=== PATIENT | female | born 1955 | race Caucasian/White ===

== ENCOUNTER 2016-09-19 23:27 | Observation (INO) | payer OTHER ==
[~2016-09-19] VITALS: Ht 172.7 cm; Wt 68.3 kg
--- NOTE | 2016-09-20 02:27 | ED CLINICAL REPORT ---
Clinical Report - Physicians/Mid Levels [facility] [address] [place] [address] 09/19/2016 23:28 Patient: JAJA MURRIETA Time Seen: 23:55 Sep 19 2016. Arrived- By ambulance. Historian- patient and EMS personnel. CPT: ER phys charges level 5 plus (#[id number]). EKG interpretation (#[id number]). HISTORY OF PRESENT ILLNESS Chief Complaint: SINGLE SYNCOPAL EPISODE. The patient has recovered. This occurred today. (pt in kitchen when sudden onset dizziness. pt sat on floor r/t worried about passing out prior to pt LOC. pt estimates she was unconscious for approx. 10 minutes). She has had dizziness.). Event was not witnessed. The patient had preceding symptoms of light-headedness and dim vision. At time of event, she was sitting. The patient felt faint, lost consciousness, was incontinent of urine and collapsed. Had a single episode. The episode lasted (10 minutes she estimates). No injuries noted. Similar symptoms previously: None. Recent medical care: Not recently seen/assessed. REVIEW OF SYSTEMS No headache, chest pain or pain, palpitations or abdominal pain. No vomiting, diarrhea, fever or sore throat or throat. No difficulty breathing, difficulty with urination or urination, skin rash or enlarged lymph nodes. No cough, cough, urinary frequency, easy bruising or symptoms of hypothyroidism. The patient has had dizziness, weakness,, skin rash, dizziness and weakness. pt in kitchen when sudden onset dizziness. pt sat on floor r/t worried about passing out prior to pt LOC. pt estimates she was unconscious for approx. 10 minutes). She has had dizziness. Had a spell of heartburn before the syncope. Says she measured her BP as 80/p right before syncope. Notes that she had taken her 50mg losartan then right after a 50 mg dose of benadryl due to an allergic reaction. The allergic reaction resolved. All systems otherwise negative, except as recorded above. PAST HISTORY ( Hypertension. Asthma. Hernia Repair. Hysterectomy. Tonsillectomy). Medications: Symbicort Inhalation. Albuterol Sulfate HFA Inhalation. Premarin Oral. Losartan Potassium Oral. Alprazolam. Allergies: Latex. SOCIAL HISTORY Heavy tobacco smoker (cigarette)- 1 pack per day. Regular alcohol use. ADDITIONAL NOTES The nursing notes have been reviewed. PHYSICAL EXAM Vital Signs: 09/20/2016 00:20 BP: 135/69. HR: 71. 09/19/2016 23:30 HR: 67. RR: 18. O2 saturation: 99%. Temp: 97.5 F. Appearance: Alert. No acute distress. Eyes: Pupils equal, round and reactive to light. No nystagmus. Extraocular movements normal. ENT: Normal ENT inspection. TM's normal. Moist mucous membranes. Pharynx normal. Neck: Normal inspection. Neck supple. CVS: Normal heart rate and rhythm. Heart sounds normal. Pulses normal. Respiratory: No respiratory distress. Breath sounds normal. Abdomen: Soft and nontender. Back: Normal inspection. Skin: Skin warm. Normal skin color. Mild, erythematous skin rash located on the face, neck, right arm, left arm, chest, back and trunk. Extremities: Extremities exhibit normal ROM. No lower extremity edema. Neuro: Alert. Oriented X 3. Mood/affect normal. Speech normal. Cranial nerves normal (as tested). No cerebellar findings. No motor deficit. No sensory deficit. Reflexes normal. LABS, X-RAYS, AND EKG EKG: No acute process. No acute ischemia. Normal sinus rhythm. Normal P waves. Normal KELSEY. Normal QRS complex. Normal axis. Normal ST and T waves. Prior EKG unavailable. The study has been interpreted contemporaneously. The study has been independently viewed by me. The EKG appears to be a good tracing. Chest X-ray: No acute disease. (COPD). Views: AP (portable). Technique: good. The X-rays were independently viewed by me and interpreted contemporaneously by me. Laboratory Tests: TSH: (ELBERT: 09/20/2016 00:00) ( MsgRcvd 09/20/2016 00:36) Final results Test Result Flag Units (Reference) THYROID STIMULATING HORMONE 4.778 H uIU/mL (0.30-3.74) Urinalysis: (ELBERT: 09/19/2016 01:48) ( MsgRcvd 09/20/2016 02:03) Final results Test Result Flag Units (Reference) URINE COLOR YELLOW URINE APPEARANCE CLEAR URINE GLUCOSE NEGATIVE (NEGATIVE) URINE BILIRUBIN NEGATIVE (NEGATIVE) URINE KETONE NEGATIVE (NEGATIVE) URINE SPECIFIC GRAVITY 1.010 (1.010-1.030) URINE PH 6.0 (5.0-8.0) URINE PROTEIN NEGATIVE (NEGATIVE) URINE UROBILINOGEN 0.2 EU/dL (0.2-1.0) URINE NITRITE NEGATIVE (NEGATIVE) URINE BLOOD TRACE-INTACT (NEGATIVE) URINE LEUKOCYTE ESTERASE NEGATIVE (NEGATIVE) URINE RBC 0-1 rbc/hpf (0-1) URINE WBC 0-1 wbc/hpf (0-1) URINE EPITHELIAL CELLS 1-3 EPI/hpf (0-5) URINE BACTERIA FEW (1+) (NONE SEEN) URINE COMMENT N CBC w Diff: (ELBERT: 09/19/2016 23:58) ( [facility] 09/20/2016 00:13) Final results Test Result Flag Units (Reference) WHITE BLOOD COUNT 15.2 H K/uL (4.5-11.5) RED BLOOD COUNT 5.16 M/uL (4.00-5.20) HEMOGLOBIN 16.1 H gm/dL (12.0-16.0) HEMATOCRIT 48.2 H % (36.0-46.0) MEAN CELL VOLUME 93 fL (80-100) MEAN CORPUSCULAR HGB 31 pg (26-34) MEAN CORPUSCULAR HGB CONC 33 g/dL (31-37) RED CELL DISTRIBUTION WIDTH 13.2 % (11.6-14.8) PLATELET COUNT 249 K/uL (150-400) LYMPH % 21.6 L % (25-40) MONO % 1.9 L % (3-14) GRANULOCYTE % 76.5 (53-90) [id number]: (ELBERT: 09/19/2016 23:58) ( [facility] 09/20/2016 00:50) Final results Test Result Flag Units (Reference) D-DIMER QUANTITATIVE 7.15 *H ug/mLFEU (0.27-0.52) CRITICAL RESULTS CALLEDCalled to CHRISTELLE 09/20/16 0049Were 2 patient identifiers used? YWas the result read back? YThe primary value of this quantitative assay relates toits negative predictive value (i.e. exclusion) of pulmonaryembolism/deep vein thrombosis/DIC.Elevated levels of d-dimer may also occur with:, age, cancer, inflammation, liver disease,post-op, infection, hematoma, coronary disease, peripheralarteriopathy, bleeding disorders and thrombolytic treatment.Results should be correlated with other clinical andradiological data.Testing Methodology: Latex Immunoassay Urine Drug Screen: (ELBERT: 09/19/2016 01:48) ( [facility] [place] 09/20/2016 02:16) Final results Test Result Flag Units (Reference) AMPHETAMINE/METHAMPHETAMINE NEGATIVE (NEGATIVE) BARBITURATE NEGATIVE (NEGATIVE) BENZODIAZEPINE NEGATIVE (NEGATIVE) CANNABINOID NEGATIVE (NEGATIVE) COCAINE NEGATIVE (NEGATIVE) ECSTASY NEGATIVE (NEGATIVE) METHADONE NEGATIVE (NEGATIVE) OPIATE NEGATIVE (NEGATIVE) The urine drug screen is a qualitative screening test fordrug overdose and abuse. All screen results should beconsidered as presumptive.Drugs screened for are as follows:BenzodiazepinesCocaineAmphetamines/MetamphetaminesTHC (Tetrahydrocannabinol)OpiatesBarbituratesEcstasyMethadonePositive results are unconfirmed. For confirmation, notifythe lab for the specimen to be sent to the reference lab.All confirmations must be performed by a differentmethodology.The ingestion of natural herbal and plant productscontaining Ephedra/Ephedra metabolites can produce in urineone or more substances capable of cross reacting withamphetamine/methamphetamine immunoassays. These testsprovide a preliminary result only. A more specificalternative chemical method must be used to obtain aconfirmed analytical result. Ethyl Alcohol: (ELBERT: 09/19/2016 23:58) ( [facility] [place]:18) Final results Test Result Flag Units (Reference) ETHYL ALCOHOL 53 H mg/dL (3-10) BNP: (ELBERT: 09/19/2016 23:58) ( [facility] [place] 00:25) Final results Test Result Flag Units (Reference) B-TYPE NATRIURETIC PEPTIDE 13.8 pg/ml (5-100) CHEM 13 PANEL: (ELBERT: 09/19/2016 23:58) ( MsgRcvd 09/20/2016 00:33) Final results Test Result Flag Units (Reference) GLUCOSE 122 H mg/dL (70-110) BUN 8 mg/dL (7-18) CREATININE 0.7 mg/dL (0.6-1.3) Estimated GFR >60 mL/min Estimated GFR- >60 mL/min Note: Persistent reduction over 3 months in eGFR<60 mL/min/1.73 m2 defines CKD. Patients with eGFR values>=60 mL/min/1.73 m2 may also have CKD if evidence ofpersistent proteinuria. Additional information may be foundat www.kidney.org. SODIUM 130 L mmol/L (136-145) POTASSIUM 3.8 mmol/L (3.5-5.1) CHLORIDE 95 L mmol/L (98-107) CARBON DIOXIDE 22 mmol/L (21-32) CALCIUM 8.2 L mg/dL (8.5-10.1) TOTAL PROTEIN 6.7 g/dL (6.4-8.2) ALBUMIN 3.4 g/dL (3.3-5.0) BILIRUBIN, TOTAL 0.4 mg/dL (0.0-1.0) ALKALINE PHOSPHATASE 53 U/L (46-116) AST (SGOT) 19 U/L (15-37) ALT (SGPT) 28 U/L (12-78) CPK 57 U/L (24-260) MAGNESIUM 1.7 L mg/dL (1.8-2.4) TROPONIN I <0.05 ng/mL (0.00-1.5) TROPONIN REFERENCE RANGE:<0.1 NEGATIVE0.1-1.5 INDETERMINANT>1.5 POSITIVE . PROGRESS AND PROCEDURES Course of Care: Adrianlock Patient is stable. Discussed case with on-call health care provider, (Fbaian). Reviewed test results. Agreed upon treatment plan and decision to admit. Health care provider will see patient in hospital. Patient/family counseled. Old medical records ordered. Disposition orders written. Disposition: Admitted to Acute Care. CLINICAL IMPRESSION Syncope of unknown cause .12 lead EKG performed. (Electronically signed by Feliciano Arnold MD 09/20/2016 8:41)
--- NOTE | 2016-09-20 02:27 | ED CLINICAL REPORT ---
Clinical Report - Physicians/Mid Levels [facility] [address] [place] [address] 09/19/2016 23:28 Patient: JAJA MURRIETA Time Seen: 23:55 Sep 19 2016. Arrived- By ambulance. Historian- patient and EMS personnel. CPT: ER phys charges level 5 plus (#[id number]). EKG interpretation (#[id number]). HISTORY OF PRESENT ILLNESS Chief Complaint: SINGLE SYNCOPAL EPISODE. The patient has recovered. This occurred today. (pt in kitchen when sudden onset dizziness. pt sat on floor r/t worried about passing out prior to pt LOC. pt estimates she was unconscious for approx. 10 minutes). She has had dizziness.). Event was not witnessed. The patient had preceding symptoms of light-headedness and dim vision. At time of event, she was sitting. The patient felt faint, lost consciousness, was incontinent of urine and collapsed. Had a single episode. The episode lasted (10 minutes she estimates). No injuries noted. Similar symptoms previously: None. Recent medical care: Not recently seen/assessed. REVIEW OF SYSTEMS No headache, chest pain or pain, palpitations or abdominal pain. No vomiting, diarrhea, fever or sore throat or throat. No difficulty breathing, difficulty with urination or urination, skin rash or enlarged lymph nodes. No cough, cough, urinary frequency, easy bruising or symptoms of hypothyroidism. The patient has had dizziness, weakness,, skin rash, dizziness and weakness. pt in kitchen when sudden onset dizziness. pt sat on floor r/t worried about passing out prior to pt LOC. pt estimates she was unconscious for approx. 10 minutes). She has had dizziness. Had a spell of heartburn before the syncope. Says she measured her BP as 80/p right before syncope. Notes that she had taken her 50mg losartan then right after a 50 mg dose of benadryl due to an allergic reaction. The allergic reaction resolved. All systems otherwise negative, except as recorded above. PAST HISTORY ( Hypertension. Asthma. Hernia Repair. Hysterectomy. Tonsillectomy). Medications: Symbicort Inhalation. Albuterol Sulfate HFA Inhalation. Premarin Oral. Losartan Potassium Oral. Alprazolam. Allergies: Latex. SOCIAL HISTORY Heavy tobacco smoker (cigarette)- 1 pack per day. Regular alcohol use. ADDITIONAL NOTES The nursing notes have been reviewed. PHYSICAL EXAM Vital Signs: 09/20/2016 00:20 BP: 135/69. HR: 71. 09/19/2016 23:30 HR: 67. RR: 18. O2 saturation: 99%. Temp: 97.5 F. Appearance: Alert. No acute distress. Eyes: Pupils equal, round and reactive to light. No nystagmus. Extraocular movements normal. ENT: Normal ENT inspection. TM's normal. Moist mucous membranes. Pharynx normal. Neck: Normal inspection. Neck supple. CVS: Normal heart rate and rhythm. Heart sounds normal. Pulses normal. Respiratory: No respiratory distress. Breath sounds normal. Abdomen: Soft and nontender. Back: Normal inspection. Skin: Skin warm. Normal skin color. Mild, erythematous skin rash located on the face, neck, right arm, left arm, chest, back and trunk. Extremities: Extremities exhibit normal ROM. No lower extremity edema. Neuro: Alert. Oriented X 3. Mood/affect normal. Speech normal. Cranial nerves normal (as tested). No cerebellar findings. No motor deficit. No sensory deficit. Reflexes normal. LABS, X-RAYS, AND EKG EKG: No acute process. No acute ischemia. Normal sinus rhythm. Normal P waves. Normal KELSEY. Normal QRS complex. Normal axis. Normal ST and T waves. Prior EKG unavailable. The study has been interpreted contemporaneously. The study has been independently viewed by me. The EKG appears to be a good tracing. Chest X-ray: No acute disease. (COPD). Views: AP (portable). Technique: good. The X-rays were independently viewed by me and interpreted contemporaneously by me. Laboratory Tests: TSH: (ELBERT: 09/20/2016 00:00) ( MsgRcvd 09/20/2016 00:36) Final results Test Result Flag Units (Reference) THYROID STIMULATING HORMONE 4.778 H uIU/mL (0.30-3.74) Urinalysis: (ELBERT: 09/19/2016 01:48) ( MsgRcvd 09/20/2016 02:03) Final results Test Result Flag Units (Reference) URINE COLOR YELLOW URINE APPEARANCE CLEAR URINE GLUCOSE NEGATIVE (NEGATIVE) URINE BILIRUBIN NEGATIVE (NEGATIVE) URINE KETONE NEGATIVE (NEGATIVE) URINE SPECIFIC GRAVITY 1.010 (1.010-1.030) URINE PH 6.0 (5.0-8.0) URINE PROTEIN NEGATIVE (NEGATIVE) URINE UROBILINOGEN 0.2 EU/dL (0.2-1.0) URINE NITRITE NEGATIVE (NEGATIVE) URINE BLOOD TRACE-INTACT (NEGATIVE) URINE LEUKOCYTE ESTERASE NEGATIVE (NEGATIVE) URINE RBC 0-1 rbc/hpf (0-1) URINE WBC 0-1 wbc/hpf (0-1) URINE EPITHELIAL CELLS 1-3 EPI/hpf (0-5) URINE BACTERIA FEW (1+) (NONE SEEN) URINE COMMENT N CBC w Diff: (ELBERT: 09/19/2016 23:58) ( [facility] 09/20/2016 00:13) Final results Test Result Flag Units (Reference) WHITE BLOOD COUNT 15.2 H K/uL (4.5-11.5) RED BLOOD COUNT 5.16 M/uL (4.00-5.20) HEMOGLOBIN 16.1 H gm/dL (12.0-16.0) HEMATOCRIT 48.2 H % (36.0-46.0) MEAN CELL VOLUME 93 fL (80-100) MEAN CORPUSCULAR HGB 31 pg (26-34) MEAN CORPUSCULAR HGB CONC 33 g/dL (31-37) RED CELL DISTRIBUTION WIDTH 13.2 % (11.6-14.8) PLATELET COUNT 249 K/uL (150-400) LYMPH % 21.6 L % (25-40) MONO % 1.9 L % (3-14) GRANULOCYTE % 76.5 (53-90) [id number]: (ELBERT: 09/19/2016 23:58) ( [facility] 09/20/2016 00:50) Final results Test Result Flag Units (Reference) D-DIMER QUANTITATIVE 7.15 *H ug/mLFEU (0.27-0.52) CRITICAL RESULTS CALLEDCalled to CHRISTELLE 09/20/16 0049Were 2 patient identifiers used? YWas the result read back? YThe primary value of this quantitative assay relates toits negative predictive value (i.e. exclusion) of pulmonaryembolism/deep vein thrombosis/DIC.Elevated levels of d-dimer may also occur with:, age, cancer, inflammation, liver disease,post-op, infection, hematoma, coronary disease, peripheralarteriopathy, bleeding disorders and thrombolytic treatment.Results should be correlated with other clinical andradiological data.Testing Methodology: Latex Immunoassay Urine Drug Screen: (ELBERT: 09/19/2016 01:48) ( [facility] [place] [facility]:16[facility] Final results Test Result Flag Units (Reference) AMPHETAMINE/METHAMPHETAMINE NEGATIVE (NEGATIVE) BARBITURATE NEGATIVE (NEGATIVE) BENZODIAZEPINE NEGATIVE (NEGATIVE) CANNABINOID NEGATIVE (NEGATIVE) COCAINE NEGATIVE (NEGATIVE) ECSTASY NEGATIVE (NEGATIVE) METHADONE NEGATIVE (NEGATIVE) OPIATE NEGATIVE (NEGATIVE) The urine drug screen is a qualitative screening test fordrug overdose and abuse. All screen results should beconsidered as presumptive.Drugs screened for are as follows:BenzodiazepinesCocaineAmphetamines/MetamphetaminesTHC (Tetrahydrocannabinol)OpiatesBarbituratesEcstasyMethadonePositive results are unconfirmed. For confirmation, notifythe lab for the specimen to be sent to the reference lab.All confirmations must be performed by a differentmethodology.The ingestion of natural herbal and plant productscontaining Ephedra/Ephedra metabolites can produce in urineone or more substances capable of cross reacting withamphetamine/methamphetamine immunoassays. These testsprovide a preliminary result only. A more specificalternative chemical method must be used to obtain aconfirmed analytical result. Ethyl Alcohol: (ELBERT: 09/19/2016 23:58) ( [facility] [place]:18) Final results Test Result Flag Units (Reference) ETHYL ALCOHOL 53 H mg/dL (3-10) BNP: (ELBERT: 09/19/2016 23:58) ( [facility] [place] 00:25) Final results Test Result Flag Units (Reference) B-TYPE NATRIURETIC PEPTIDE 13.8 pg/ml (5-100) CHEM 13 PANEL: (ELBERT: 09/19/2016 23:58) ( MsgRcvd 09/20/2016 00:33) Final results Test Result Flag Units (Reference) GLUCOSE 122 H mg/dL (70-110) BUN 8 mg/dL (7-18) CREATININE 0.7 mg/dL (0.6-1.3) Estimated GFR >60 mL/min Estimated GFR- >60 mL/min Note: Persistent reduction over 3 months in eGFR<60 mL/min/1.73 m2 defines CKD. Patients with eGFR values>=60 mL/min/1.73 m2 may also have CKD if evidence ofpersistent proteinuria. Additional information may be foundat www.kidney.org. SODIUM 130 L mmol/L (136-145) POTASSIUM 3.8 mmol/L (3.5-5.1) CHLORIDE 95 L mmol/L (98-107) CARBON DIOXIDE 22 mmol/L (21-32) CALCIUM 8.2 L mg/dL (8.5-10.1) TOTAL PROTEIN 6.7 g/dL (6.4-8.2) ALBUMIN 3.4 g/dL (3.3-5.0) BILIRUBIN, TOTAL 0.4 mg/dL (0.0-1.0) ALKALINE PHOSPHATASE 53 U/L (46-116) AST (SGOT) 19 U/L (15-37) ALT (SGPT) 28 U/L (12-78) CPK 57 U/L (24-260) MAGNESIUM 1.7 L mg/dL (1.8-2.4) TROPONIN I <0.05 ng/mL (0.00-1.5) TROPONIN REFERENCE RANGE:<0.1 NEGATIVE0.1-1.5 INDETERMINANT>1.5 POSITIVE . PROGRESS AND PROCEDURES Course of Care: Adrianlock Patient is stable. Discussed case with on-call health care provider, (Fabian). Reviewed test results. Agreed upon treatment plan and decision to admit. Health care provider will see patient in hospital. Patient/family counseled. Old medical records ordered. Disposition orders written. Disposition: Admitted to Acute Care. CLINICAL IMPRESSION Syncope of unknown cause .12 lead EKG performed. (Electronically signed by Feliciano Arnold MD 09/20/2016 8:41)
--- NOTE | 2016-09-20 02:27 | ED ORDER SUMMARY ---
..... 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 per protocol) (23:41 SBalde R.N.) CBC w Diff Urgent (23:41 09/19/2016 SBalde R.N. per protocol) (Ack 23:43 AMcQuoid ER Tech1) (Cancelled: Other23:54 Jose M BAIN) CMP Urgent (23:41 09/19/2016 SBalde R.N. per protocol) (Ack 23:43 AMcQuoid ER Tech1) (Cancelled: Other23:54 Jose M BAIN) EKG - ER Stat (23:41 09/19/2016 SBalde R.N. per protocol) (23:41 SBalde R.N.) Pulse oximeter (23:41 09/19/2016 SBalde R.N. per protocol) (23:41 SBalde R.N.) Cardiac Panel Stat (23:55 09/19/2016 Jose M BAIN) (Ack 23:58 AMcQuoid ER Tech1) (23:58 AMcQuoid ER Tech1) BNP Urgent (23:55 09/19/2016 Jose M BAIN) (Ack 23:58 AMcQuoid ER Tech1) (23:58 AMcQuoid ER Tech1) D-Dimer Urgent (23:55 09/19/2016 Jose M BAIN) (Ack 23:58 AMcQuoid ER Tech1) (23:58 AMcQuoid ER Tech1) Chest 1V Urgent (23:55 09/19/2016 Jose M BAIN) (Ack 23:58 AMcQuoid ER Tech1) (0:13 Ayan) Ethyl Alcohol Urgent (23:56 09/19/2016 SBalde R.N. per protocol) (Ack 23:58 AMcQuoid ER Tech1) (23:58 AMcQuoid ER Tech1) Urine Drug Screen Urgent (23:57 09/19/2016 SBalde R.N. per protocol) (Ack 23:58 AMcQuoid ER Tech1) (2:08 JBullard R.N.) Urinalysis Urgent (23:57 09/19/2016 SBalde R.N. per protocol) (Ack 23:58 AMcQuoid ER Tech1) (2:08 JBullard R.N.) - (orthostatic BP/P) (00:12 09/20/2016 Jose M BAIN) (0:33 AMcQuoid ER Tech1) TSH Urgent (00:12 09/20/2016 Jose M BAIN) (Ack 0:19 AMcQuoid ER Tech1) (0:57 THEODOREullard R.N.) EKG - ER Stat (00:12 09/20/2016 Jose M BAIN) (Cancelled: Duplicate Order0:22 AMcQuoid ER Tech1) - (need BP on chart.) (00:12 09/20/2016 Jose M BAIN) (0:33 AMcQuoid ER Tech1) CTA Thorax w Cont (No) (N/A) Urgent (01:09 09/20/2016 Jose M BAIN) (Ack 1:12 AMcQuoid ER Tech1) (1:43 Ayan) MEDICATION ORDERS: IV FLUIDS: IV Saline Lock (23:41 09/19/2016 Marizol R.N. per protocol) (23:44 Alessandra R.NYessy) ORDER SHEET NOTES: [Electronically signed by Umer Gonsales R.N. (03:35 09/20/2016)] [Electronically signed by Feliciano Arnold MD (08:41 09/20/2016)] [Electronically locked/signed by Umer Gonsales R.N. (03:35 09/20/2016)]
--- NOTE | 2016-09-20 02:27 | ED NURSING NOTES ---
Clinical Report - Nurses [facility] [address] [place] [address] 09/19/2016 23:28 Patient: JAJA MURRIETA TRIAGE Triage time 2331. Acuity: LEVEL 2. Chief Complaint: DIFFICULTY STANDING and "FELT STRANGE" and SYNCOPE (itchy face neck and shoulders). --23:41 Umer Gonsales R.N. 23:30 09/19/16. HR: 67. RR: 18. O2 saturation: 99%. Temp: 97.5 F. Pain level now 0/10. --23:41 Umer Gonsales R.N. 00:54 09/20/16. BP: 147/82. --00:54 Umer Gonsales R.N. Weight: 68.9 kg stated. Height/Length: 68 inches Per Patient. BMI: 23.1. --23:35 Umer Gonsales R.N. Medications Alprazolam. --23:37 Umer Gonsales R.N. Losartan Potassium Oral. --23:38 Umer Gonsales R.N. Premarin Oral. --23:38 Umer Gonsales R.N. Albuterol Sulfate HFA Inhalation. --23:38 Umer Gonsales R.N. Symbicort Inhalation. --23:39 Umer Gonsales R.N. Allergies Latex. --23:37 Umer Gonsales R.N. Medication/allergy information source: the patient. --23:41 Umer Gonsales R.N. History Arrived by EMS. Historian: patient. Primary physician (quentin browne). This started just prior to arrival. ( pt in kitchen when sudden onset dizziness. pt sat on floor r/t worried about passing out prior to pt LOC. pt estimates she was unconscious for approx. 10 minutes). She has had dizziness. 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 SOCIAL HX: Heavy tobacco smoker- 1 pack per day. Alcohol use; consumes beer daily and wine daily. FALL RISK ASSESSMENT: Fall risk assessment completed. No fall risk identified. NUTRITIONAL RISK ASSESSMENT: The nutritional risk assessment revealed no deficiencies. FUNCTIONAL ASSESSMENT: Functional assessment: no impairments noted. LEARNING NEEDS ASSESSMENT: The learning needs assessment revealed no barriers. SKIN INTEGRITY ASSESSMENT: Skin integrity risk assessment completed. No skin integrity risk identified. --23:41 Umer Gonsales R.N. PROBLEMS: Hypertension. Asthma. --23:40 Umer Gonsales R.N. ADDITIONAL SURGERIES: Hernia Repair. Hysterectomy. Tonsillectomy. --23:40 Umer Gonsales R.N. Interventions ID band on patient. --23:41 Umer Gonsales R.N. PHYSICAL ASSESSMENT To room via stretcher. Patient gowned. Baseline functional status: usually alert, oriented x4 and cooperative. Verbal response: usually clear and appropriate. Motor response: usually steady gait and moves all extremities equally GENERAL / NEURO / PSYCH: Awake. Oriented X 4. Alert. Appears in no acute distress. Speech normal. Mood/affect normal. Moves all extremities. No motor deficit. No sensory deficit. HEENT: No facial asymmetry noted. Pupils equal, round and reactive to light. EOM intact. RESPIRATORY: Breath sounds within normal limits. Respirations not labored. CVS: Capillary refill less than 2 seconds. SKIN: Skin is intact, warm and dry. --23:42 Umer Gonsales R.N. NURSING PROGRESS NOTES Patient gowned. Head of bed elevated. Reassurance given. Patient identifiers checked. Call light placed in reach. Bed placed in lowest position. Brakes of bed on. --23:43 Umer Gonsales R.N. 23:29 09/19/2016 Site #1 started prior to arrival by EMS via IV in the right antecubital space with an 20g angiocath. --23:44 Umer Gonsales R.N. EKG time: (23:43). EKG was performed by a pritesh and shown to the ED physician. --23:44 Conrad Jarquin 00:20 09/20/16. BP: 135/69 taken while lying. HR: 71. --00:32 McQuoid, Carole, ER Tech1 00:22 09/20/16. BP: 151/85 taken while sitting. HR: 76. --00:32 McQuCarole mario, ER Tech1 00:24 09/20/16. BP: 143/84 taken while standing. HR: 83. --00:33 McQuoid Carole, ER Tech1 01:27. Patient transported to [place] by stretcher with tech. --01:27 McQuoid Carole, ER Tech1 01:39. Patient returned from CT by stretcher with tech. --01:40 McQuoid, Carole, ER Tech1. DISPOSITION / DISCHARGE Admitted to the Critical Care Unit. Patient's personal items include: shirt, pants, glasses and purse. --03:24 Neisha Rubio R.N. 03:23 09/20/16. BP: 147/86. HR: 82. RR: 16. O2 saturation: 98%. Temp: 98.2 F. Pain level now 0/10. --03:24 Neisha Rubio R.N. Departure time: 03:25 Sep 20 2016. --03:25 Neisha Rubio R.N. Locked/Released at 09/20/2016 3:35 by Umer Gonsales R.N.
--- NOTE | 2016-09-20 02:27 | ED NURSING NOTES ---
Clinical Report - Nurses [facility] [address] [place] [address] 09/19/2016 23:28 Patient: JAJA MURRIETA TRIAGE Triage time 2331. Acuity: LEVEL 2. Chief Complaint: DIFFICULTY STANDING and "FELT STRANGE" and SYNCOPE (itchy face neck and shoulders). --23:41 Umer Gonsales R.N. 23:30 09/19/16. HR: 67. RR: 18. O2 saturation: 99%. Temp: 97.5 F. Pain level now 0/10. --23:41 Umer Gonsales R.N. 00:54 09/20/16. BP: 147/82. --00:54 Umer Gonsales R.N. Weight: 68.9 kg stated. Height/Length: 68 inches Per Patient. BMI: 23.1. --23:35 Umer Gonsales R.N. Medications Alprazolam. --23:37 Umer Gonsales R.N. Losartan Potassium Oral. --23:38 Umer Gonsales R.N. Premarin Oral. --23:38 Umer Gonsales R.N. Albuterol Sulfate HFA Inhalation. --23:38 Umer Gonsales R.N. Symbicort Inhalation. --23:39 Umer Gonsales R.N. Allergies Latex. --23:37 Umer Gonsales R.N. Medication/allergy information source: the patient. --23:41 Umer Gonsales R.N. History Arrived by EMS. Historian: patient. Primary physician (quentin browne). This started just prior to arrival. ( pt in kitchen when sudden onset dizziness. pt sat on floor r/t worried about passing out prior to pt LOC. pt estimates she was unconscious for approx. 10 minutes). She has had dizziness. 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 SOCIAL HX: Heavy tobacco smoker- 1 pack per day. Alcohol use; consumes beer daily and wine daily. FALL RISK ASSESSMENT: Fall risk assessment completed. No fall risk identified. NUTRITIONAL RISK ASSESSMENT: The nutritional risk assessment revealed no deficiencies. FUNCTIONAL ASSESSMENT: Functional assessment: no impairments noted. LEARNING NEEDS ASSESSMENT: The learning needs assessment revealed no barriers. SKIN INTEGRITY ASSESSMENT: Skin integrity risk assessment completed. No skin integrity risk identified. --23:41 Umer Gonsales R.N. PROBLEMS: Hypertension. Asthma. --23:40 Umer Gonsales R.N. ADDITIONAL SURGERIES: Hernia Repair. Hysterectomy. Tonsillectomy. --23:40 Umer Gonsales R.N. Interventions ID band on patient. --23:41 Umer Gonsales R.N. PHYSICAL ASSESSMENT To room via stretcher. Patient gowned. Baseline functional status: usually alert, oriented x4 and cooperative. Verbal response: usually clear and appropriate. Motor response: usually steady gait and moves all extremities equally GENERAL / NEURO / PSYCH: Awake. Oriented X 4. Alert. Appears in no acute distress. Speech normal. Mood/affect normal. Moves all extremities. No motor deficit. No sensory deficit. HEENT: No facial asymmetry noted. Pupils equal, round and reactive to light. EOM intact. RESPIRATORY: Breath sounds within normal limits. Respirations not labored. CVS: Capillary refill less than 2 seconds. SKIN: Skin is intact, warm and dry. --23:42 Umer Gonsales R.N. NURSING PROGRESS NOTES Patient gowned. Head of bed elevated. Reassurance given. Patient identifiers checked. Call light placed in reach. Bed placed in lowest position. Brakes of bed on. --23:43 Umer Gonsales R.N. 23:29 09/19/2016 Site #1 started prior to arrival by EMS via IV in the right antecubital space with an 20g angiocath. --23:44 Umer Gonsales R.N. EKG time: (23:43). EKG was performed by a pritesh and shown to the ED physician. --23:44 Conrad Jarquin 00:20 09/20/16. BP: 135/69 taken while lying. HR: 71. --00:32 McQuoid, Carole, ER Tech1 00:22 09/20/16. BP: 151/85 taken while sitting. HR: 76. --00:32 McQuCaroel mario, ER Tech1 00:24 09/20/16. BP: 143/84 taken while standing. HR: 83. --00:33 McQuoid Carole, ER Tech1 01:27. Patient transported to [place] by stretcher with tech. --01:27 McQuoid Carole, ER Tech1 01:39. Patient returned from CT by stretcher with tech. --01:40 McQuoid, Carole, ER Tech1. DISPOSITION / DISCHARGE Admitted to the Critical Care Unit. Patient's personal items include: shirt, pants, glasses and purse. --03:24 Neisha Rubio R.N. 03:23 09/20/16. BP: 147/86. HR: 82. RR: 16. O2 saturation: 98%. Temp: 98.2 F. Pain level now 0/10. --03:24 Neisha Rubio R.N. Departure time: 03:25 Sep 20 2016. --03:25 Neisha Rubio R.N. Locked/Released at 09/20/2016 3:35 by Umer Gonsales R.N.
--- NOTE | 2016-09-20 02:27 | ED ORDER SUMMARY ---
..... Patient: JAJA MURRIETA OrderSheet Merged With [facility] VisitID: [id number] [address] [place] [address] 60y, F Registration Date/Time: 09/19/2016 ORDER SHEET Weight: 68.9 kg (stated) Allergies: Latex GENERAL ORDERS: Row Boss Hoeing (Continuous) (23:40 09/19/2016 SBalde R.N. per protocol) (23:41 SBalde R.N.) CBC w Diff Urgent (23:41 09/19/2016 SBalde R.N. per protocol) (Ack 23:43 AMcQuoid ER Tech1) (Cancelled: Other23:54 Jose M BAIN) CMP Urgent (23:41 09/19/2016 SBalde R.N. per protocol) (Ack 23:43 AMcQuoid ER Tech1) (Cancelled: Other23:54 Jose M BAIN) EKG - ER Stat (23:41 09/19/2016 SBalde R.N. per protocol) (23:41 SBalde R.N.) Pulse oximeter (23:41 09/19/2016 SBalde R.N. per protocol) (23:41 SBalde R.N.) Cardiac Panel Stat (23:55 09/19/2016 Jose M BAIN) (Ack 23:58 AMcQuoid ER Tech1) (23:58 AMcQuoid ER Tech1) BNP Urgent (23:55 09/19/2016 Jose M BAIN) (Ack 23:58 AMcQuoid ER Tech1) (23:58 AMcQuoid ER Tech1) D-Dimer Urgent (23:55 09/19/2016 Jose M BAIN) (Ack 23:58 AMcQuoid ER Tech1) (23:58 AMcQuoid ER Tech1) Chest 1V Urgent (23:55 09/19/2016 Jose M BAIN) (Ack 23:58 AMcQuoid ER Tech1) (0:13 Ayan) Ethyl Alcohol Urgent (23:56 09/19/2016 SBalde R.N. per protocol) (Ack 23:58 AMcQuoid ER Tech1) (23:58 AMcQuoid ER Tech1) Urine Drug Screen Urgent (23:57 09/19/2016 SBalde R.N. per protocol) (Ack 23:58 AMcQuoid ER Tech1) (2:08 JBullard R.N.) Urinalysis Urgent (23:57 09/19/2016 SBalde R.N. per protocol) (Ack 23:58 AMcQuoid ER Tech1) (2:08 JBullard R.N.) - (orthostatic BP/P) (00:12 09/20/2016 Jose M BAIN) (0:33 AMcQuoid ER Tech1) TSH Urgent (00:12 09/20/2016 Jose M BAIN) (Ack 0:19 AMcQuoid ER Tech1) (0:57 THEODOREullard R.N.) EKG - ER Stat (00:12 09/20/2016 Jose M BAIN) (Cancelled: Duplicate Order0:22 AMcQuoid ER Tech1) - (need BP on chart.) (00:12 09/20/2016 Jose M BAIN) (0:33 AMcQuoid ER Tech1) CTA Thorax w Cont (No) (N/A) Urgent (01:09 09/20/2016 Jose M BAIN) (Ack 1:12 AMcQuoid ER Tech1) (1:43 Ayan) MEDICATION ORDERS: IV FLUIDS: IV Saline Lock (23:41 09/19/2016 Marizol R.N. per protocol) (23:44 Alessandra R.NYessy) ORDER SHEET NOTES: [Electronically signed by Umer Gonsales R.N. (03:35 09/20/2016)] [Electronically signed by Feliciano Arnold MD (08:41 09/20/2016)] [Electronically locked/signed by Umer Gonsales R.N. (03:35 09/20/2016)]
[2016-09-20 03:56] VITALS: BP 137/75
--- NOTE | 2016-09-20 04:28 | HISTORY AND PHYSICAL ---
ADMITTED: 09/20/2016 CHIEF COMPLAINT: 1. Syncope HISTORY OF PRESENT ILLNESS: A 60-year-old female who was well on the evening prior to admission. She states she had a dinner, which is normal for her, which was spaghetti with "cinnamon cap mushrooms in." Following dinner she became red and itchy. She called the nurse hotline and was advised to use Benadryl. She did not have that available, but called a neighbor who did have some Benadryl. She took 2 tablets of Benadryl. She then began to feel dizzy. She checked her blood pressure and found it to be 80/ palpable. She sat on the floor and then laid down and then "passed out for 10 minutes." She noted on waking that she was incontinent of urine and had some achiness in the left leg. She also notes she had 1 beer and 1 wine on the evening prior to this. She states this is not unusual for her, but she does not drink alcohol every night. When the patient developed a red rash, she also had hives. She notes she had also took her evening dose of 50 mg of Losartan about the same time, she took the Benadryl. MEDICAL/SURGICAL HISTORY: Positive for hypertension and asthma. The patient also has had herniated disk x2 and ruptured disk x3, in her back. Surgical history herniorrhaphy, hysterectomy, appendectomy, tonsillectomy. MEDICATIONS: 1. Symbicort 1 puff 4 times per week. 2. Albuterol 2 puffs every 4 hours p.r.n. 3. Premarin 0.625 mg every other day. 4. Losartan 50 mg p.o. b.i.d. 5. Alprazolam 0.5 mg 1/2 tablet at bedtime and another half tablet at 4 a.m. "for anxiety." She does not take alprazolam during the day. ALLERGIES: 1. LATEX. SOCIAL HISTORY: female. She has been x30 years. She has 1 son and is retired. FAMILY HISTORY: Mother of cancer of unknown type. Father of unknown cause. There is no diabetes in the family. The patient notes she has a niece with asthma and a sister with colon cancer. REVIEW OF SYSTEMS: The patient denies headache. She admits to lightheadedness and dimmed vision prior to her syncopal episode. General: Denies fevers, chills, or malaise. HEENT; Denies hearing change, vision change, sore throat or sinus pain. Respiratory: Denies cough, shortness of breath, or wheezing. Cardiac: Denies chest pain, palpitations, or paroxysmal nocturnal dyspnea. Gastrointestinal: Denies nausea, vomiting, diarrhea, constipation, bright red blood per rectum or melena. Genitourinary: Denies dysuria or hematuria, but admits to incontinence x1 as noted above with syncope. PHYSICAL EXAMINATION: VITAL SIGNS: Blood pressure 135/69, pulse 71, respirations 18, SaO2 99%, temperature 97.5. HEENT: Clear. NECK: Supple without adenopathy or thyromegaly. CHEST: Clear to auscultation and percussion. HEART: Regular rate and rhythm without murmur. ABDOMEN: Positive bowel sounds. Soft, nontender, without hepatosplenomegaly or masses. BACK: Straight without CVA tenderness. EXTREMITIES: Without cyanosis, clubbing, or edema. NEUROLOGIC: Intact and symmetric. Cranial nerves II through XII intact to confrontation. SKIN: Shows no lesions. There is some patchy redness to the skin. No hives are noted. GENITAL/RECTAL/BREASTS: Deferred. LAB/IMAGING: TSH 4.778. Urinalysis clear. WBC 15.2, hemoglobin 16.1, platelets 249. D-dimer 7.15. Urine toxicology screen negative. Ethyl alcohol 53. BNP 13.8, glucose 122, BUN 8, creatinine 0.7. Sodium 130, potassium 3.8, chloride 95, bicarbonate 22, calcium 8.2. Total protein 6.7, albumin 3.4. Total bilirubin 0.4, AST 19, ALT 28. CPK 57 , magnesium 1.7. Troponin less than 0.05. CT angiogram was performed which was negative for pulmonary emboli. Chest x-ray is obtained, which is benign without lesions or infiltrates. There is no cardiomegaly. EKG reveals normal sinus rhythm. IMPRESSION: 1. Syncope, etiology unclear, possibly secondary to allergic reaction versus secondary to alcohol versus secondary to Benadryl versus secondary to hypotension with antihypertensive medications. 2. History of hypertension. 3. History of asthma. 4. History of anxiety disorder. PLAN: Admit to [facility] for IV hydration and telemetry monitoring. We will obtain an MRI of the head.
--- NOTE | 2016-09-20 05:37 | DIAGNOSTIC IMAGING REPORT ---
PROCEDURE: XR CHEST 1 VIEW INDICATION: SYNCOPE TECHNIQUE: Portable AP view 12:07 a.m. COMPARISON: None. FINDINGS: Lungs are clear. The right basilar nipple shadow. Heart and mediastinum are normal. Thorax is normal. IMPRESSION: 1. Negative chest.
[2016-09-20] MEDS ORDERED: LOSARTAN POTASS50 MG PO (06:05)
[2016-09-20] MEDS ORDERED: PREMARIN0.625 MG PO (06:09)
[2016-09-20] MEDS ORDERED: PROBIOTI1 PO (06:10)
[2016-09-20] MEDS ORDERED: ROBITUSSIN COUGH (06:14)
[2016-09-20] MEDS ORDERED: XANAX0.5 MG ET (06:15)
[2016-09-20] MEDS ORDERED: SYMBICORT1 AER IN (06:18)
[2016-09-20] MEDS ORDERED: ALBUTEROL HFA60 DOSE IN (06:21)
--- NOTE | 2016-09-20 06:28 | DIAGNOSTIC IMAGING REPORT ---
PROCEDURE: CTA THORAX WITH CONTRAST INDICATION: SYNCOPE TECHNIQUE: 84 ml of Isovue 370 was injected intravenously and axial images were obtained of the entire thorax with 3D sagittal and coronal MIP reconstructions. COMPARISON: Chest x-ray 09/20/2016 FINDINGS: No evidence of pulmonary emboli. Mild emphysematous changes. No adenopathy or effusion. No aortic dissection or aneurysm. Dense calcific plaque of the mid descending thoracic aorta with less than 50% stenosis. Mild calcific atherosclerosis of the proximal left common carotid and right innominate artery. 1.9 cm left adrenal nodule. No suspicious osseous lesions. IMPRESSION: 1. No evidence of pulmonary emboli, aortic dissection or aneurysm 2. Atherosclerosis of the aorta and great vessels 3. Mild emphysema 4. 1.9 cm left adrenal nodule 5. Preliminary results submitted by Dr. Camp, [facility] radiology
[2016-09-20 06:44] VITALS: BP 136/80
--- NOTE | 2016-09-20 08:42 | ED MAR SUMMARY ---
..... Medication Administration Record [facility] [address], [place] [id number] Patient: JAJA MURRIETA Visit ID: [id number] 60y, F Weight: 68.9 kg Height/Length: 68 in BMI: 23.1 ALLERGIES: Latex
--- NOTE | 2016-09-20 08:42 | ED MED RECONCILIATION SUMMARY ---
Patient: JAJA MURRIETA Medication Reconciliation Report [facility] VisitID: [id number] [address] [place] [address] 60y, F Registration Date/Time: 09/19/2016 Weight: 68.9 kg Height/Length: 68 in. BMI: 23.1 ALLERGIES: Latex The patient's Home Medications are listed below: THE FOLLOWING MEDICATIONS NEED TO BE RECONCILED: Albuterol Sulfate HFA Inhalation Alprazolam Losartan Potassium Oral Premarin Oral Symbicort Inhalation The source(s) of the original Home Medication information: patient The following Medications were given to the patient in the Emergency Department: None. The following Medications were prescribed to the patient: None.
--- NOTE | 2016-09-20 08:42 | ED MED RECONCILIATION SUMMARY ---
Patient: JAJA MURRIETA Medication Reconciliation Report [facility] VisitID: [id number] [address] [place] [address] 60y, F Registration Date/Time: 09/19/2016 Weight: 68.9 kg Height/Length: 68 in. BMI: 23.1 ALLERGIES: Latex The patient's Home Medications are listed below: THE FOLLOWING MEDICATIONS NEED TO BE RECONCILED: Albuterol Sulfate HFA Inhalation Alprazolam Losartan Potassium Oral Premarin Oral Symbicort Inhalation The source(s) of the original Home Medication information: patient The following Medications were given to the patient in the Emergency Department: None. The following Medications were prescribed to the patient: None.
--- NOTE | 2016-09-20 08:42 | ED MAR SUMMARY ---
..... Medication Administration Record [facility] [address] [place], [place] [id number] Patient: JAJA MURRIETA Visit ID: [id number] 60y, F Weight: 68.9 kg Height/Length: 68 in BMI: 23.1 ALLERGIES: Latex
--- NOTE | 2016-09-20 08:42 | ED DISCHARGE INSTRUCTIONS ---
Patient: JAJA MURRIETA General Instructions [facility] VisitID: [id number] [place] [address] 60y, F Registration Date/Time: 09/19/2016 Syncope of unknown cause .12 lead EKG performed. ADDITIONAL INFORMATION Fainting:Uncertain Cause Fainting (syncope) is a temporary loss of consciousness ("passing out"). It occurs when blood flow to the brain is reduced. Near-fainting ("near-syncope") is very similar to fainting, but you do not fully "pass out". The common minor causes of fainting include: sudden fear, pain, nausea, emotional stress and overexertion. Suddenly standing up after sitting or lying for a long time can also cause fainting. The more serious causes for fainting are due to either a very slow or very fast or very slow heart beat ("arrhythmia"), other types of heart disease, dehydration, blood loss, seizure, stroke or ruptured blood vessel in the brain. Taking too much high blood pressure medicine can also cause low blood pressure and fainting. The exact cause of your episode is not certain. However, the tests today did not show any of the serious causes of fainting. Sometimes further testing is needed to find out if a serious problem exists. Therefore, it is important that you follow-up with your doctor as advised. Home Care: 1) Rest today. You may resume your normal activities when you are feeling back to normal. It is best to remain with someone who can check on you for the next 24 hours to watch for another episode of fainting. 2) If you become light-headed or dizzy, lie down immediately or sit with your head between your knees. 3) Because we do not know the exact cause of your near fainting spell, it is possible for another spell to occur without warning. Therefore, do not drive a car or operate dangerous equipment, do not take a bath alone (use a shower instead) and do not swim alone until your doctor says that you are no longer in danger of having another fainting spell. Follow Up with your doctor as advised. Get Prompt Medical Attention if any of the following occur: -- Another fainting spell occurs, which is not explained by the common causes listed above -- Chest, arm, neck, jaw, back or abdominal pain -- Shortness of breath -- Severe headache or seizure -- Blood in vomit, stools (black or red color) -- Unexpected vaginal bleeding -- Palpitations (very rapid or very slow or irregular heart beat) -- Signs of stroke: Weakness of an arm or leg or one side of the face Difficulty with speech or vision Extreme drowsiness, confusion, dizziness or fainting You have been given the following additional information: Syncope, Unk Cause (Electronically signed by Feliciano Arnold MD 09/20/2016 8:41)
[2016-09-20 10:43] VITALS: BP 153/83
[2016-09-20] MEDS ORDERED: [UNRECOGNIZED DRUG - OTHER] (10:51)
--- NOTE | 2016-09-20 11:10 | DIAGNOSTIC IMAGING REPORT ---
PROCEDURE: MR BRAIN WITHOUT CONTRAST INDICATION: syncope TECHNIQUE: Multiplanar multisequence MRI imaging of the brain without contrast. COMPARISON: None. FINDINGS: The midline structures are normally formed. The ventricular system is normal in size. Basal cisterns are patent. Flow voids in the major intracranial vessels are normal. There is a mild atrophy with moderate increase in signal in the periventricular white matter consistent with small-vessel ischemic disease. No restricted diffusion to suggest acute ischemia. No evidence of acute or chronic intraparenchymal or extra-axial hemorrhage. No mass, mass effect, or midline shift. Normal signal in the visible bones. The sinuses are normally aerated. Visible extracranial soft tissues including the orbits are normal. IMPRESSION: 1. Mild atrophy and periventricular small-vessel ischemic disease.
--- NOTE | 2016-09-20 13:59 | Provider's Discharge Care Plan ---
Problem, Goal, Plan Problem List 1. Syncope and collapse Instructions: - avoid taking alcohol and antihistamines at the same time 2. Hypertension Instructions: Take meds as directed 3. Asthma Instructions: Take meds as directed
== END 2016-09-20 14:40 | disposition home or self-care (01) ==
LOC: ED SRH 23:27 → CC SRH 09-20 02:28 → TRANS SRH 09-20 02:28 → CC SRH 09-20 02:28
PROVIDERS: ADMIT Family Medicine
DX: R55 Syncope and collapse (principal); L50.0 Allergic urticaria; R42 Dizziness and giddiness; I10 Essential (primary) hypertension; J45.909 Unspecified asthma, uncomplicated
CPT/HCPCS: 29230; 29242; 29249; 90004; 90100; 90616; 91320; 91556; 92010; 92132; 92610; 92720; 92760; 92761; 92762; 92763; 92764; 92765; 92766; 92767; 93140; 95059